=== PATIENT | female | born 2005 | race African-American/Black ===

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

== ENCOUNTER 2023-06-11 14:04 | Day surgery (SDC) | payer OTHER ==
[2023-06-11 14:54] VITALS: BMI 28.0
[2023-06-11] MEDS ORDERED: Acetaminophen 500 MG TAB PO SCH (15:45)
[2023-06-11] MEDS ORDERED: Lidocaine 4% Patch TD SCH (16:15)
[2023-06-11 17:47] LABS: Bilirubin Neg (Negative); Blood, Urine Negative (Negative); Clarity Clear (Clear); Glucose, Urine (Dipstick) Normal (Negative); Ketone, Urine 15 mg/dL (Negative); Leukocyte 100 (Negative); Nitrite Negative (Negative); Protein, Urine (Dipstick) Negative (Neg-Trace); Urobilinogen Normal mg/dL (Less than 2)
[2023-06-11 18:04] LABS: Bacteria/HPF None Seen HPF (None Seen); CAUTI Indications for Culture Pelvic or flank pain; RBC/HPF None Seen HPF (0-3); Squamous Epithelial 0-3 HPF (0-3); Urine Culture Reflex No No; WBC/HPF 0-3 HPF (0-3)
== END 2023-06-11 18:50 | disposition home or self-care (01) ==
LOC: CSHLD/OP 14:04
PROVIDERS: ATTEND Family Medicine
DX: O99.891 Other specified diseases and conditions complicating pregnancy (principal); M54.50 Low back pain, unspecified; Z3A.22 22 weeks gestation of pregnancy; W50.1XXA Accidental kick by another person, initial encounter
CPT/HCPCS: 81001; 99283

== ENCOUNTER 2023-07-14 15:23 | Day surgery (SDC) | payer OTHER ==
[2023-07-14 15:48] VITALS: BMI 27.8
[2023-07-14] MEDS ORDERED: Acetaminophen 500 MG TAB PO PRN (16:36)
[2023-07-14] MEDS ORDERED: Lactated Ringer's 1,000 ML IV SCH (16:45)
== END 2023-07-14 18:40 | disposition home or self-care (01) ==
LOC: CSHLD/OP 15:23
PROVIDERS: ATTEND Student in an Organized Health Care Education/Training Program
DX: O99.891 Other specified diseases and conditions complicating pregnancy (principal); R10.9 Unspecified abdominal pain; O99.512 Diseases of the respiratory system complicating pregnancy, second trimester; J45.909 Unspecified asthma, uncomplicated; O99.342 Other mental disorders complicating pregnancy, second trimester; F41.9 Anxiety disorder, unspecified; O99.282 Endocrine, nutritional and metabolic diseases complicating pregnancy, second trimester; E86.0 Dehydration; Z79.899 Other long term (current) drug therapy; Z3A.27 27 weeks gestation of pregnancy
CPT/HCPCS: 96360; 96361; 99282

== ENCOUNTER 2023-09-07 14:53 | Day surgery (SDC) | payer OTHER ==
[2023-09-07] MEDS ORDERED: hydrALAZINE 20 MG/ML VIAL SLOW IVP PRN (15:47)
[2023-09-07] MEDS ORDERED: Acetaminophen 500 MG TAB PO SCH (17:00)
== END 2023-09-07 18:48 | disposition home or self-care (01) ==
LOC: CSHLD/OP 14:53
PROVIDERS: ATTEND Emergency Medicine
DX: O26.893 Other specified pregnancy related conditions, third trimester (principal); R10.2 Pelvic and perineal pain; O99.353 Diseases of the nervous system complicating pregnancy, third trimester; G44.209 Tension-type headache, unspecified, not intractable; Z3A.35 35 weeks gestation of pregnancy
CPT/HCPCS: 76815; 99282

== ENCOUNTER 2023-09-19 00:37 | Inpatient (IN) | payer OTHER ==
[2023-09-19] MEDS ORDERED: Acetaminophen 500 MG TAB PO SCH (02:00)
[2023-09-19 02:27] LABS: Amphetamine Not Detected (NotDetected); Barbiturates Screen Not Detected (NotDetected); Benzodiazepine Screen Not Detected (NotDetected); Cocaine Metabolite Screen Not Detected (NotDetected); Methadone Not Detected (NotDetected); Methamphetamine Not Detected (NotDetected); Opiate Screen Not Detected (NotDetected); Oxycodone Screen Not Detected (NotDetected); Phencyclidine (PCP) Not Detected (NotDetected); THC/Cannabinoid Screen Not Detected (NotDetected); Tricyclic Screen Not Detected (NotDetected)
[2023-09-19] MEDS ORDERED: Loratadine 10 MG TAB PO SCH (02:30)
[2023-09-19 02:37] VITALS: BMI 31.3
[2023-09-19 02:42] LABS: Creatinine, Urine 65.14 mg/dL (47-110); Protein, Urine Random Quant Less than 10 mg/dL (1-14)
[2023-09-19] MEDS ORDERED: Tranexamic Acid 1,000 MG/10 ML VIAL IVP PRN (02:45)
[2023-09-19] MEDS ORDERED: Ondansetron PF 4 MG/2 ML Vial IVP PRN (02:45)
[2023-09-19] MEDS ORDERED: hydrALAZINE 20 MG/ML VIAL SLOW IVP PRN (02:45)
[2023-09-19] MEDS ORDERED: Promethazine HCl 25 MG/ML VIAL IM PRN (02:45)
[2023-09-19] MEDS ORDERED: Misoprostol 200 MCG TAB PR PRN (02:45)
[2023-09-19] MEDS ORDERED: Oxytocin 30 units/NS 500 ML 500 ML IV SCH (03:00)
[2023-09-19] MEDS ORDERED: Lidocaine 1% (PF) 30 ML VIAL SC PRN (04:54)
[2023-09-19] MEDS ORDERED: Penicillin G Potassium 5 MILL.UNITS in Sodium Chloride 0.9% 100 ML IVPB SCH (05:00)
[2023-09-19 06:19] LABS: Hematocrit 27.2 % (34.9-44.5); Hemoglobin 9.2 g/dL (12.0-15.5); Mean Corpuscular HGB CONC 33.8 g/dL (32.0-36.0); Mean Corpuscular Hemoglobin 27.5 pg (27.0-33.0); Mean Corpuscular Volume 81.4 fl (81.6-98.3); Platelet Count 290 10x3/uL (150-450); RBC Distribution Width 13.8 % (11.5-14.5); Red Blood Cell (RBC) Count 3.34 10x6/uL (3.90-5.03); White Blood Cell (WBC) Count 9.2 10x3/uL (3.5-10.5)
[2023-09-19 06:30] LABS: HBSAg Index 0.18 S/CO (0-0.99); Hep B Surf Ag - L&D Non-Reactive S/CO (NonReactive)
[2023-09-19 06:32] LABS: Syphilis Antibody Nonreactive (Nonreactive); Syphilis Antibody Index 0.12 S/CO (<1.00 Non-Reactive)
[2023-09-19] MEDS: Misoprostol 100 MCG TAB VAG SCH ×3 (06:36→18:36)
[2023-09-19] MEDS ORDERED: Misoprostol 100 MCG TAB ONE ×2 (11:04→18:02)
[2023-09-19] MEDS: Penicillin G 2.5 MILL.units 2.5 MILL.UNITS in Premix 1 BAG IVPB SCH ×3 (11:13→20:40)
[2023-09-20] MEDS: Penicillin G 2.5 MILL.units 2.5 MILL.UNITS in Premix 1 BAG IVPB SCH ×4 (00:40→20:58)
[2023-09-20] MEDS ORDERED: Misoprostol 100 MCG TAB ONE ×2 (01:11→06:03)
[2023-09-20] MEDS: Misoprostol 100 MCG TAB VAG SCH (01:30)
[2023-09-20] MEDS ORDERED: Cetirizine HCl 10 MG TAB PO SCH (08:15)
[2023-09-20] MEDS: Fluticasone Propionate Nasal Spray 16 gm Bottle NASAL SCH (08:46)
[2023-09-20] MEDS ORDERED: Loratadine 10 MG TAB PO SCH (09:00)
[2023-09-20] MEDS ORDERED: fentaNYL 50 mcg/mL 1 mL Vial ONE (10:15)
[2023-09-20] MEDS ORDERED: fentaNYL 50 mcg/mL 1 mL Vial SLOW IVP SCH (11:00)
[2023-09-20] MEDS ORDERED: Oxytocin 30 units/NS 500 ML 500 ML IV SCH ×2 (16:30)
[2023-09-20] MEDS: hydrOXYzine 25 MG TAB PO PRN ×2 (20:23→23:30)
[2023-09-20] MEDS ORDERED: Morphine 4 MG/ML VIAL SLOW IVP PRN (22:42)
[2023-09-20] MEDS ORDERED: Morphine 4 MG/ML VIAL SLOW IVP SCH (22:45)
[2023-09-20] MEDS ORDERED: fentaNYL/Ropivacaine Epidural 100 ML ONE (23:58)
[2023-09-21] MEDS ORDERED: diphenhydrAMINE 50 MG/ML VIAL IVP PRN (00:32)
[2023-09-21] MEDS ORDERED: ePHEDrine Sulfate 50 MG/10 ML VIAL SLOW IVP PRN (00:32)
[2023-09-21] MEDS ORDERED: Lactated Ringer's 500 ML IV PRN (00:32)
[2023-09-21] MEDS ORDERED: Acetaminophen 325 MG TAB PO PRN (00:32)
[2023-09-21] MEDS ORDERED: Promethazine HCl 25 MG/ML VIAL IM PRN (00:32)
[2023-09-21] MEDS ORDERED: Ondansetron PF 4 MG/2 ML Vial IVP PRN (00:32)
[2023-09-21] MEDS ORDERED: Moisturizing Cream (Eucerin) 113 GM JAR TOP PRN (00:32)
[2023-09-21] MEDS ORDERED: Naloxone HCl 0.4 mg/ml Vial IVP PRN ×2 (00:32)
[2023-09-21] MEDS ORDERED: Communication Order-Pharmacy FS SCH (00:45)
[2023-09-21] MEDS ORDERED: fentaNYL 2 mcg/Ropivacaine 0.2% Epidural 100 ML CADD EPIDURAL SCH (00:45)
[2023-09-21] MEDS: Penicillin G 2.5 MILL.units 2.5 MILL.UNITS in Premix 1 BAG IVPB SCH ×3 (01:24→10:01)
[2023-09-21] MEDS ORDERED: Oxytocin 10 UNITS/ML VIAL ONE (05:24)
[2023-09-21] MEDS ORDERED: Loratadine 10 MG TAB PO PRN (09:00)
[2023-09-21] MEDS ORDERED: Methylergonovine 0.2 MG/ML VIAL ONE (09:01)
[2023-09-21] MEDS ORDERED: Misoprostol 200 MCG TAB ONE ×2 (09:01→14:40)
[2023-09-21] MEDS ORDERED: Tranexamic Acid 1,000 MG/10 ML VIAL ONE (09:02)
[2023-09-21] MEDS ORDERED: Bupivacaine 0.25% HCL 30 ML VIAL ONE (13:00)
[2023-09-21] MEDS ORDERED: Bupivacaine PF 0.5% 30 ML VIAL ONE (13:00)
[2023-09-21] MEDS ORDERED: Carboprost 250 MCG/ML AMP ONE (14:41)
[2023-09-21] MEDS ORDERED: Boostrix 0.5 ML (Tdap) VIAL (>/=7 yrs of age) IM ONE (14:48)
[2023-09-21] MEDS ORDERED: Milk Of Magnesia 30 ML UDCUP PO PRN (14:48)
[2023-09-21] MEDS ORDERED: hydrALAZINE 20 MG/ML VIAL SLOW IVP PRN (14:48)
[2023-09-21] MEDS ORDERED: Bisacodyl 10 MG SUPP PR PRN (14:48)
[2023-09-21] MEDS ORDERED: Erythromycin Base 0.5% Oint 1 GM TUBE ONE (15:00)
[2023-09-21] MEDS ORDERED: Phytonadione Neonatal 1 MG/0.5 ML AMP ONE (15:00)
[2023-09-21] MEDS ORDERED: Ketorolac Tromethamine 15 MG/ML VIAL IVP SCH (15:30)
[2023-09-21] MEDS ORDERED: Ibuprofen 800 MG TAB PO SCH (15:30)
[2023-09-21] MEDS ORDERED: HYDROcodone/Acetaminophen 5/325 mg Tablet PO SCH (15:45)
[2023-09-21] MEDS ORDERED: Ketorolac Tromethamine 30 MG/ML VIAL IVP SCH (15:45)
[2023-09-21] MEDS: Acetaminophen 500 MG TAB PO PRN (17:58)
[2023-09-21] MEDS: Ferrous Sulfate 325 MG TAB PO SCH (17:58)
[2023-09-21] MEDS: Ibuprofen 800 MG TAB PO SCH (22:45)
[2023-09-22] MEDS: Acetaminophen 500 MG TAB PO PRN ×4 (00:17→22:09)
[2023-09-22] MEDS: Docusate 100 MG CAP PO PRN ×2 (00:18→22:10)
[2023-09-22] MEDS: Fluticasone Propionate Nasal Spray 16 gm Bottle NASAL SCH ×2 (04:57→08:53)
[2023-09-22] MEDS: Ibuprofen 800 MG TAB PO SCH ×3 (05:56→22:08)
[2023-09-22] MEDS: Ferrous Sulfate 325 MG TAB PO SCH ×2 (08:48→22:06)
[2023-09-23] MEDS: Ibuprofen 800 MG TAB PO SCH ×2 (06:22→13:43)
[2023-09-23] MEDS: Acetaminophen 500 MG TAB PO PRN ×2 (06:22→11:54)
[2023-09-23] MEDS: Ferrous Sulfate 325 MG TAB PO SCH ×2 (09:07→18:59)
[2023-09-23] MEDS: Fluticasone Propionate Nasal Spray 16 gm Bottle NASAL SCH (10:11)
[2023-09-23 11:48] VITALS: BP 140/66; TEMP 98
[2023-09-23] MEDS ORDERED: Acetaminophen 500 MG TAB PO SCH (12:00)
== END 2023-09-23 20:30 | disposition home or self-care (01) | DRG 807 ==
LOC: CSHLD/OP 00:37 → CSHLD 02:46 → CSHPP 09-21 17:34
PROVIDERS: ADMIT Obstetrics & Gynecology; ATTEND Obstetrics & Gynecology
PROC: 3E0P7VZ Introduction of Hormone into Female Reproductive, Via Natural or Artificial Opening (ICD-10-PCS; 2023-09-19)
PROC: 0U7C7ZZ Dilation of Cervix, Via Natural or Artificial Opening (ICD-10-PCS; 2023-09-20)
PROC: 10907ZC Drainage of Amniotic Fluid, Therapeutic from Products of Conception, Via Natural or Artificial Opening (ICD-10-PCS; 2023-09-20)
PROC: 10H07YZ Insertion of Other Device into Products of Conception, Via Natural or Artificial Opening (ICD-10-PCS; 2023-09-20)
PROC: 10E0XZZ Delivery of Products of Conception, External Approach (ICD-10-PCS; principal; 2023-09-21)
PROC: 0HQ9XZZ Repair Perineum Skin, External Approach (ICD-10-PCS; 2023-09-21)
PROC: 3E0234Z Introduction of Serum, Toxoid and Vaccine into Muscle, Percutaneous Approach (ICD-10-PCS; 2023-09-21)
DX: O13.4 Gestational [pregnancy-induced] hypertension without significant proteinuria, complicating childbirth (principal); Z37.0 Single live birth; J45.909 Unspecified asthma, uncomplicated; F41.9 Anxiety disorder, unspecified; D64.9 Anemia, unspecified; Z3A.37 37 weeks gestation of pregnancy; O99.824 Streptococcus B carrier state complicating childbirth; O26.893 Other specified pregnancy related conditions, third trimester; Z67.11 Type A blood, Rh negative; O70.0 First degree perineal laceration during delivery; O99.344 Other mental disorders complicating childbirth; O99.52 Diseases of the respiratory system complicating childbirth; O99.02 Anemia complicating childbirth
CPT/HCPCS: 36415; 51702; 80053; 80306; 81001; 82570; 84156; 84443; 85025; 85027; 85461; 86780; 86850; 86900; 86901; 87086; 87340; 87880; 90384; 93005; 94640; 96360; 96372; 99285; J2270; J2405; J2540; J2590; J3010; J3490; J7611; J7620; S0020